=== PATIENT | female | born 1945 | race Caucasian/White ===

== ENCOUNTER → 2017-08-01 | Outpatient (CLI) | payer OTHER, MEDICARE | LOC: FIMAGING 14:45 | PROVIDERS: ATTEND Physician Assistant | DX: Z12.31 Encounter for screening mammogram for malignant neoplasm of breast (principal) | CPT/HCPCS: G0202 ==

== ENCOUNTER → 2017-08-15 | Outpatient (CLI) | payer OTHER, MEDICARE | LOC: BMCIMAGING 11:00 | PROVIDERS: ATTEND Internal Medicine Rheumatology | DX: M25.551 Pain in right hip (principal); M25.552 Pain in left hip ==

== ENCOUNTER → 2018-12-22 | Outpatient (CLI) | payer OTHER, MEDICARE | LOC: FIMAGING 08:21 | PROVIDERS: ATTEND Physician Assistant | DX: Z12.31 Encounter for screening mammogram for malignant neoplasm of breast (principal) ==